=== PATIENT | male | born 1955 | race American Indian/Alaskan Native ===

== ENCOUNTER 2018-06-25 17:56 | Emergency (ER) | payer OTHER ==
[2018-06-25 18:01] VITALS: BP 197/108
[2018-06-25] MEDS ORDERED: CATAPRES PO ONE (18:22)
[2018-06-25 18:50] LABS: Basophils % (Auto) 0.9 % (0.0-1.8); Eosinophils # (Auto) 0.1 K/mm3 (0.0-0.4); Eosinophils % (Auto) 2.3 % (0.0-4.3); Hematocrit 45.8 % (35.5-45.6); Hemoglobin 15.4 gm/dl (11.8-15.2); Lymphocytes # (Auto) 0.6 K/mm3 (1.2-5.4); Lymphocytes % (Auto) 12.4 % (13.4-35.0); Mean Corpuscular HGB Conc 34 % (32-34); Mean Corpuscular Volume 92 fl (84-94); Monocytes # (Auto) 0.6 K/mm3 (0.0-0.8); Platelet Count 170 K/mm3 (140-440); Red Blood Count 4.99 M/mm3 (3.65-5.03); Red Cell Distribution Width 14.6 % (13.2-15.2)
--- NOTE | 2018-06-25 18:55 | Emergency Department Report ---
ED Recheck HPI - General Chief Complaint: High BP Stated Complaint: HIGH BLOOD PRESSURE Time Seen by Provider: 06/25/18 18:46 Source: patient Mode of arrival: Ambulatory Limitations: No Limitations - History of Present Illness Initial Comments: PT 62 YO AA MALE WHO COMES IN TODAY FOR MED REFILL HE IS HAVING NO CP OR SOB. HE HAS NO HEADACHE OR OTHER SYMPTOMS HE WAS BEING SEEN AT WORK AND BP NOTED HIGH. THEY TOLD HIM TO GET HIS BP MEDS - WHICH HE HAS BEEN OFF OF FOR YEARS. Symptoms Since Prior Visit: no new symptoms Associated Symptoms: none - Related Data Previous Rx's Medication Instructions Recorded Last Taken Type Amlodipine Besylate [Norvasc] 10 mg PO DAILY #30 tablet 06/25/18 Unknown Rx RX: Lisinopril 20 mg PO DAILY #30 tablet 06/25/18 Unknown Rx hydroCHLOROthiazide [HCTZ] 25 mg PO QDAY #30 tablet 06/25/18 Unknown Rx Allergies Allergy/AdvReac Type Severity Reaction Status Date / Time No Known Allergies Allergy Unverified 09/03/13 18:07 ED Review of Systems ROS: Stated complaint: HIGH BLOOD PRESSURE Other details as noted in HPI Comment: All other systems reviewed and negative Constitutional: denies: chills Eyes: denies: eye pain ENT: denies: throat pain Respiratory: denies: orthopnea Gastrointestinal: denies: nausea Genitourinary: denies: urgency Musculoskeletal: denies: back pain Skin: denies: rash Neurological: denies: headache Psychiatric: denies: anxiety Hematological/Lymphatic: denies: easy bleeding ED Past Medical Hx - Past Medical History Hx Hypertension: Yes Hx Kidney Stones: Yes - Surgical History Additional Surgical History: nephrolithotomy - Family History Family history: no significant - Social History Smoking Status: Never Smoker Substance Use Type: None - Medications Home Medications: Home Medications Medication Instructions Recorded Confirmed Last Taken Type Amlodipine Besylate [Norvasc] 10 mg PO DAILY #30 tablet 06/25/18 Unknown Rx RX: Lisinopril 20 mg PO DAILY #30 tablet 06/25/18 Unknown Rx hydroCHLOROthiazide [HCTZ] 25 mg PO QDAY #30 tablet 06/25/18 Unknown Rx ED Physical Exam - General Limitations: No Limitations General appearance: alert - Head Head exam: Present: atraumatic - Eye Eye exam: Present: normal appearance Pupils: Present: normal accommodation - ENT ENT exam: Present: normal exam - Neck Neck exam: Present: normal inspection - Respiratory Respiratory exam: Present: normal lung sounds bilaterally - Cardiovascular Cardiovascular Exam: Present: regular rate - GI/Abdominal GI/Abdominal exam: Present: soft, normal bowel sounds - Rectal Rectal exam: Present: deferred - Extremities Exam Extremities exam: Present: normal inspection, full ROM - Back Exam Back exam: Present: normal inspection, full ROM - Neurological Exam Neurological exam: Present: alert, oriented X3 - Psychiatric Psychiatric exam: Present: normal affect, normal mood - Skin Skin exam: Present: warm, dry ED Course Vital Signs 06/25/18 06/25/18 17:59 18:33 Temperature 97.8 F Pulse Rate 84 84 Respiratory 18 Rate Blood Pressure 197/108 197/108 O2 Sat by Pulse 98 Oximetry ED Recheck MDM - Core Measures Measure Exclusions: not indicated - Medical Decision Making MED REFILL NO SYMPTOMS Critical care attestation.: If time is entered above; I have spent that time in minutes in the direct care of this critically ill patient, excluding procedure time. ED Disposition Clinical Impression: Medication refill, HTN (hypertension) Disposition: TO HOME OR SELFCARE Is pt being admited?: No Does the pt Need Aspirin: No Condition: Stable Instructions: Hypertension (ED) Additional Instructions: ACTIVITY TOLERATED MED ORDERED TODAY FOLLOW UP WITH PCP REFERRAL GIVEN BELOW LOW SALT LOW FAT DIET AVOID FRIED FOODS HYDRATE WELL WITH WATER - 2 GALLONS PER DAY DO NOT STOP YOUR MEDS ABRUPTLY Prescriptions: Amlodipine Besylate [Norvasc] 10 mg PO DAILY #30 tablet hydroCHLOROthiazide [HCTZ] 25 mg PO QDAY #30 tablet RX: Lisinopril 20 mg PO DAILY #30 tablet Referrals: ALEX DHALIWAL MD [Staff Physician] - 3-5 Days [facility] [Outside] - 3-5 Days Time of Disposition: 18:48
[2018-06-25 19:01] LABS: Calcium 9.6 mg/dL (8.4-10.2)
== END 2018-06-25 19:10 | disposition home or self-care (01) ==
LOC: ED 17:56
DX: I10 Essential (primary) hypertension (principal); Z76.0 Encounter for issue of repeat prescription; Z87.442 Personal history of urinary calculi
CPT/HCPCS: 36415; 80048; 85025; 99283

== ENCOUNTER 2018-09-21 17:32 | Emergency (ER) | payer OTHER ==
--- NOTE | 2018-09-21 17:45 | Emergency Department Report ---
Chief Complaint: High BP Stated Complaint: HIGH BP Time Seen by Provider: 09/21/18 17:42 - HPI History of Present Illness: Pt presents for HTN he states it was 180/105 at home has not taken his BP medication in 3 days lisinopril 20 mg once daily, amlodipine 10 mg once daily blurred vision this morning, none currently no MELENDEZ, no numbness, or weakness PMHx of CHF, CKD MSE screening note: Focused history and physical exam performed. Due to findings the following was ordered: labs, UA ED Disposition for MSE Condition: Stable
[2018-09-21 18:15] LABS: Basophils # (Auto) 0.1 K/mm3 (0.0-0.1); Basophils % (Auto) 0.9 % (0.0-1.8); Eosinophils # (Auto) 0.2 K/mm3 (0.0-0.4); Eosinophils % (Auto) 2.9 % (0.0-4.3); Hematocrit 44.2 % (35.5-45.6); Lymphocytes % (Auto) 17.7 % (13.4-35.0); Mean Corpuscular HGB Conc 34 % (32-34); Mean Corpuscular Volume 92 fl (84-94); Monocytes # (Auto) 0.8 K/mm3 (0.0-0.8); Platelet Count 207 K/mm3 (140-440); Red Blood Count 4.82 M/mm3 (3.65-5.03); Red Cell Distribution Width 14.8 % (13.2-15.2)
[2018-09-21 18:19] LABS: Bacteria,Urine 1+ /HPF (Negative); Bilirubin,Urine NEG (Negative); Blood,Urine LG (Negative); Color,Urine Yellow (Yellow); Protein,Urine <15 mg/dL mg/dL (Negative); Urobilinogen,Urine < 2.0 mg/dL (<2.0)
[2018-09-21 18:29] LABS: Calcium 9.3 mg/dL (8.4-10.2)
--- NOTE | 2018-09-21 20:19 | Emergency Department Report ---
ED Recheck HPI - General Chief Complaint: High BP Stated Complaint: HIGH BP Time Seen by Provider: 09/21/18 17:42 Source: patient Mode of arrival: Ambulatory Limitations: No Limitations - History of Present Illness Initial Comments: Patient is a pleasant 63-year-old -[place] male comes to the ER today out of his blood pressure medicines. He's been seen here numerous times for the same thing. He has no headache no chest pain or shortness of breath. He has no primary care although has been given numerous referrals. He states he just recently got his insurance back. His only significant medical history is hypertension for which he takes Norvasc 10 daily and lisinopril 20 daily. MD Complaint: other - Related Data Previous Rx's Medication Instructions Recorded Last Taken Type Amlodipine Besylate [Norvasc] 10 mg PO DAILY #30 tablet 09/21/18 Unknown Rx Lisinopril 20 mg PO DAILY #30 tablet 09/21/18 Unknown Rx Allergies Allergy/AdvReac Type Severity Reaction Status Date / Time No Known Allergies Allergy Verified 09/21/18 17:33 ED Review of Systems ROS: Stated complaint: HIGH BP Other details as noted in HPI Comment: All other systems reviewed and negative ED Past Medical Hx - Past Medical History Hx Hypertension: Yes Hx Kidney Stones: Yes - Surgical History Additional Surgical History: nephrolithotomy - Social History Smoking Status: Never Smoker Substance Use Type: None - Medications Home Medications: Home Medications Medication Instructions Recorded Confirmed Last Taken Type Amlodipine Besylate [Norvasc] 10 mg PO DAILY #30 tablet 09/21/18 Unknown Rx Lisinopril 20 mg PO DAILY #30 tablet 09/21/18 Unknown Rx ED Physical Exam - General Limitations: No Limitations General appearance: alert, in no apparent distress - Head Head exam: Present: atraumatic, normocephalic - Eye Eye exam: Present: normal appearance, PERRL, EOMI - ENT ENT exam: Present: mucous membranes moist - Neck Neck exam: Present: normal inspection - Respiratory Respiratory exam: Present: normal lung sounds bilaterally - Cardiovascular Cardiovascular Exam: Present: regular rate - GI/Abdominal GI/Abdominal exam: Present: soft - Rectal Rectal exam: Present: deferred - Extremities Exam Extremities exam: Present: normal inspection, full ROM - Back Exam Back exam: Present: normal inspection, full ROM - Neurological Exam Neurological exam: Present: alert, oriented X3, CN II-XII intact, normal gait ED Course Vital Signs 09/21/18 17:44 Temperature 98.0 F Pulse Rate 90 Respiratory 18 Rate Blood Pressure 160/107 O2 Sat by Pulse 98 Oximetry ED Recheck MDM - Core Measures Measure Exclusions: not indicated - Medical Decision Making Patient is neurologically intact. He is here for medication refill. He is asymptomatic with his elevated blood pressure. He is nontoxic ambulatory smiling and laughing on exam. No focal neuro deficit. He has been off his lisinopril and Norvasc for a couple weeks. Patient being discharged home with prescriptions and referred to primary care Lab Results 09/21/18 09/21/18 09/21/18 Range/Units 17:53 17:59 17:59 WBC 5.4 (4.5-11.0) K/mm3 RBC 4.82 (3.65-5.03) M/mm3 Hgb 15.0 (11.8-15.2) gm/dl Hct 44.2 (35.5-45.6) % MCV 92 (84-94) fl MCH 31 (28-32) pg MCHC 34 (32-34) % RDW 14.8 (13.2-15.2) % Plt Count 207 (140-440) K/mm3 Lymph % (Auto) 17.7 (13.4-35.0) % [place] % (Auto) 15.0 H (0.0-7.3) % Eos % (Auto) 2.9 (0.0-4.3) % Baso % (Auto) 0.9 (0.0-1.8) % Lymph # 1.0 L (1.2-5.4) K/mm3 [place] # 0.8 (0.0-0.8) K/mm3 Eos # 0.2 (0.0-0.4) K/mm3 Baso # 0.1 (0.0-0.1) K/mm3 Seg Neutrophils % 63.5 (40.0-70.0) % Seg Neutrophils # 3.5 (1.8-7.7) K/mm3 Sodium 140 (137-145) mmol/L Potassium 4.6 (3.6-5.0) mmol/L Chloride 101.8 (98-107) mmol/L Carbon Dioxide 29 (22-30) mmol/L Anion Gap 14 mmol/L BUN 31 H (9-20) mg/dL Creatinine 1.7 H (0.8-1.5) mg/dL Estimated GFR 50 ml/min BUN/Creatinine Ratio 18 % Glucose 94 (75-100) mg/dL Calcium 9.3 (8.4-10.2) mg/dL Urine Color Yellow (Yellow) Urine Turbidity Slightly-cloudy (Clear) Urine pH 6.0 (5.0-7.0) Ur Specific [place] 1.010 (1.003-1.030) Urine Protein <15 mg/dl (Negative) mg/dL Urine Glucose (UA) Neg (Negative) mg/dL Urine Ketones Neg (Negative) mg/dL Urine Blood Lg (Negative) Urine Nitrite Neg (Negative) Urine Bilirubin Neg (Negative) Urine Urobilinogen < 2.0 (<2.0) mg/dL Ur Leukocyte Esterase Lg (Negative) Urine WBC (Auto) 142.0 H (0.0-6.0) /HPF Urine RBC (Auto) 96.0 (0.0-6.0) /HPF U Epithel Cells (Auto) 1.0 (0-13.0) /HPF Urine Bacteria (Auto) 1+ (Negative) /HPF Vital Signs 09/21/18 17:44 Temperature 98.0 F Pulse Rate 90 Respiratory 18 Rate Blood Pressure 160/107 O2 Sat by Pulse 98 Oximetry Critical care attestation.: If time is entered above; I have spent that time in minutes in the direct care of this critically ill patient, excluding procedure time. ED Disposition Clinical Impression: HTN (hypertension), Medication refill Disposition: TO HOME OR SELFCARE Is pt being admited?: No Does the pt Need Aspirin: No Condition: Stable Instructions: Hypertension (ED) Referrals: [facility] [Outside] - 3-5 Days Time of Disposition: 20:18
[2018-09-23 17:57] VITALS: BP 132/77
== END 2018-09-21 20:20 | disposition home or self-care (01) ==
LOC: ED 17:32
DX: I10 Essential (primary) hypertension (principal); Z76.0 Encounter for issue of repeat prescription; Z87.442 Personal history of urinary calculi
CPT/HCPCS: 36415; 80048; 81001; 85025

== ENCOUNTER 2019-08-08 09:30 | Emergency (ER) | payer OTHER ==
[2019-08-08 09:35] VITALS: BP 166/100
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
== END 2019-08-08 12:24 | disposition left against medical advice (07) ==
LOC: ED 09:30
DX: M54.2 Cervicalgia (principal); M25.519 Pain in unspecified shoulder; V89.0XXA Person injured in unspecified motor-vehicle accident, nontraffic, initial encounter; Y93.89 Activity, other specified; Y92.89 Other specified places as the place of occurrence of the external cause; Y99.8 Other external cause status
CPT/HCPCS: 99282